=== PATIENT | male | born 1985 | race Caucasian/White ===

== ENCOUNTER 2018-03-23 11:27 | Emergency (ER) | payer SELFPAY ==
[2018-03-23 12:15] LABS: #Basophils 0.1 thou/uL (0.0-0.2); #Eosinphils 0.2 thou/uL (0.0-0.7); #Lymphocytes 2.6 thou/uL (1.20-3.40); #Monocytes 0.4 thou/uL (0.11-0.59); #Neutrophils 2.9 thou/uL (1.40-6.50); %Eosinophils 3.7 % (0.0-10.0); %Lymphocytes 42.2 % (21.0-51.0); %Monocytes 6.2 % (0.0-10.0); %Neutrophils 46.8 % (42.0-75.0); Hemoglobin 16.6 g/dL (14.0-18.0); Mean Corpuscular HGB CONC 34.4 g/dL (32.0-36.0); Mean Corpuscular Hemoglobin 30.7 pg (27.0-31.0); Mean Corpuscular Volume 89.4 fl (80.0-94.0); Mean Platelet Volume 6.6 fL (7.4-10.4); Platelet Count 295 thou/uL (130-400); RBC Distribution Width 12.5 % (11.5-14.5); Red Blood Cell (RBC) Count 5.41 mill/uL (4.70-6.10); White Blood Cell (WBC) Count 6.2 thou/uL (4.8-10.8)
[2018-03-23 12:21] LABS: PTT 25.9 SEC (22.9-36.1)
[2018-03-23 12:35] LABS: ALT (SGPT) 42 U/L (8-55); AST (SGOT) 26 U/L (5-34); Albumin 4.7 g/dL (3.5-5.0); Alkaline Phosphatase 82 U/L (40-150); Anion Gap 9 mmol/L (10-20); BUN (Urea Nitrogen) 14 mg/dL (8.9-20.6); Bilirubin, Total 0.4 mg/dL (0.2-1.2); Calc. Creatinine Clearance 0 mL/min (70-130); Calcium 9.7 mg/dL (7.8-10.44); Carbon Dioxide 26 mmol/L (22-29); Chloride 107 mmol/L (98-107); Estimated GFR-MDRD Greater than 90; Globulin 2.5 g/dL (2.4-3.5); Glucose 101 mg/dL (70-105); Potassium 4.3 mmol/L (3.5-5.1); Protein, Total 7.2 g/dL (6.0-8.3); Sodium 138 mmol/L (136-145)
[2018-03-23] MEDS ORDERED: Ondansetron ODT 4 MG TAB ONE ×2 (13:21→14:48)
[2018-03-23] MEDS ORDERED: Morphine 4 MG/ML VIAL ONE (14:01)
[2018-03-23] MEDS ORDERED: Iopamidol 370 76% 50 ML VIAL FS ONE (14:36)
[2018-03-23] MEDS ORDERED: ISOVUE-370 76%-LOCM 1 ML ONE (14:36)
--- NOTE | 2018-03-23 15:11 | CT ---
CT ABDOMEN AND PELVIS NONCONTRAST: Date: 03/23/18 HISTORY: Abdominal pain. Hematochezia. COMPARISON: 09/24/12. FINDINGS: Lung bases are clear. The liver, spleen, kidneys, adrenal glands, and pancreas are within normal limi ts. No enlarged lymph nodes or free fluid are apparent. Urinary bladder is well distended. Scattered diverticula arise from the colon without adjacent inflammation. IMPRESSION: Mild diverticulosis. No evidence of diverticulitis. POS: [facility]
[2018-03-23 15:46] LABS: Hemoglobin 15.7 g/dL (14.0-18.0)
== END 2018-03-23 16:30 | disposition home or self-care (01) ==
LOC: ERS 11:27
DX: K92.1 Melena (principal); F17.210 Nicotine dependence, cigarettes, uncomplicated; F41.9 Anxiety disorder, unspecified; F31.9 Bipolar disorder, unspecified
CPT/HCPCS: 36415; 74177; 80053; 82274; 83605; 85025; 85610; 85730; 86850; 86900; 86901; 96361; 96374; 99406; J2270; Q0162